=== PATIENT | male | born 1935 | race Caucasian/White ===

== ENCOUNTER 2019-05-17 07:35 | Day surgery (SDC) | payer MEDICARE, BC ==
[2019-05-17] MEDS: Polymyxin B/Trimethoprim 10 ML Bottle EYERT SCH ×4 (08:08→09:16)
--- NOTE | 2019-05-17 08:11 | PCM.PREANE ---
Preanesthetic Assessment - Anesthesia/Transfusion/Family Hx Anesthesia History: Prior Anesthesia Without Reaction Family History of Anesthesia Reaction: No - Review of Systems General: No Symptoms Pulmonary: Cough (Occasional. Smoker >1 ppday, COPD, Advair used this morning. ) Cardiovascular: No Symptoms (History of cardiac stents x 3 10 years ago. ) Gastrointestinal: No Symptoms Neurological: No Symptoms Other: Reports: None - Physical Assessment NPO Status Date: 05/16/19 NPO Status Time: 18:00 Vital Signs: Last Vital Signs Temp 36.5 C 05/17/19 07:40 Pulse 66 05/17/19 07:40 Resp 20 05/17/19 07:40 BP 148/65 H 05/17/19 07:40 Pulse Ox 95 05/17/19 07:40 Height: 1.93 m Weight: 81.647 kg ASA Class: 3 Mental Status: Alert & Oriented x3 Airway Class: Mallampati = 2 Dentition: Reports: Dentures (Upper plate) Thyro-Mental Finger Breadths: 3 Mouth Opening Finger Breadths: 3 ROM/Head Extension: Full Lungs: Clear to Auscultation, Normal Respiratory Effort, Decreased Breath Sounds Cardiovascular: Regular Rate, Regular Rhythm - Allergies Allergies/Adverse Reactions: Allergies Allergy/AdvReac Type Severity Reaction Status Date / Time No Known Allergies Allergy Verified 05/16/19 10:58 - Anesthesia Plan Beta Álvaro: Metoprolol Med Last Dose Date: 05/17/19 Med Last Dose Time: 06:00 - Acknowledgements Anesthesia Type Planned: MAC Pt an Appropriate Candidate for the Planned Anesthesia: Yes Alternatives and Risks of Anesthesia Discussed w Pt/Guardian: Yes Pt/Guardian Understands and Agrees with Anesthesia Plan: Yes PreAnesthesia Questionnaire - HOME MEDS Home Medications: Home Meds Aspirin [Halfprin] 81 mg PO DAILY 05/16/19 [History] Calcium Carbonate/Vitamin D3 [Calcium 500 + Vit D 400] 1 tab PO DAILY 05/16/19 [ History] Fluticasone/Salmeterol [Advair HFA 230-21 MCG] 2 puff INH BID 05/16/19 [History] Leuprolide Acetate [Eligard] 7.5 mg SQ ASDIRECTED 05/16/19 [History] Lisinopril 10 mg PO DAILY 05/16/19 [History] Metoprolol Succinate 50 mg PO DAILY 05/16/19 [History] Tamsulosin HCl [Flomax] 0.4 mg PO BEDTIME 05/16/19 [History] Umeclidinium [place] [Incruse Ellipta*] 62.5 mcg IH DAILY 05/16/19 [History] - CURRENT (IN HOUSE) MEDS Current Meds: Current Medications Brimonidine Tartrate (Alphagan 0.2% Ophth Soln) 0 ml EYERT ASDIRECTED LONNIE Stop: 05/17/19 18:00 Cefuroxime Sodium (Zinacef) 0 mg EYERT ASDIRECTED LONNIE Stop: 05/17/19 18:00 Lidocaine HCl (Xylocaine-Mpf 1%) 0 ml INJECT ASDIRECTED LONNIE Stop: 05/17/19 18:00 Phenylephrine HCl (Alfredo-Synephrine 2.5% Ophth Soln) 0 ml EYERT ASDIRECTED LONNIE Stop: 05/17/19 18:00 Pilocarpine HCl (Pilocar 4% Ophth Soln) 0 ml EYERT ASDIRECTED LONNIE Stop: 05/17/19 18:00 Polymyxin/Trimethoprim Sulfate (Polytrim Ophth Soln) 0 ml EYERT ASDIRECTED LONNIE Stop: 05/17/19 18:00 Tetracaine HCl (Tetracaine 0.5% Steri-Unit Leonie) 0 ml EYERT ASDIRECTED LONNIE Stop: 05/17/19 18:00 Tropicamide (Mydriacyl 1% Ophth Soln) 0 ml EYERT ASDIRECTED LONNIE Stop: 05/17/19 18:00
[2019-05-17] MEDS: Brimonidine 0.2% Ophth Soln 5 ML Bottle EYERT SCH ×4 (08:14→09:16)
[2019-05-17] MEDS: Phenylephrine 2.5% Ophth Soln 2 ML Bot EYERT SCH ×6 (08:18→08:58)
[2019-05-17] MEDS: Tropicamide 1% Ophth Soln 15 ML Bottle EYERT SCH ×4 (08:22→08:48)
[2019-05-17] MEDS: Tetracaine HCl/PF 0.5% 4 ML Bottle EYERT SCH ×3 (08:51→09:03)
[2019-05-17] MEDS: Lidocaine 1% PF 2 ML SDV INJECT SCH ×2 (08:52→09:02)
[2019-05-17] MEDS: Cefuroxime 10 MG/ML SYRINGE EYERT SCH ×2 (08:53→09:15)
[2019-05-17] MEDS: Pilocarpine 4% Ophth Soln 15 ML Bot EYERT SCH ×2 (09:04→09:16)
--- NOTE | 2019-05-17 09:18 | PCM48HPAN ---
Post Anesthesia Note - EVALUATION WITHIN 48HRS OF ANESTHETIC Vital Signs in Normal Range: Yes Patient Participated in Evaluation: Yes Respiratory Function Stable: Yes Airway Patent: Yes Cardiovascular Function Stable: Yes Hydration Status Stable: Yes Pain Control Satisfactory: Yes Nausea and Vomiting Control Satisfactory: Yes Mental Status Recovered: Yes Vital Signs: Last Vital Signs Temp 36.5 C 05/17/19 07:40 Pulse 66 05/17/19 07:40 Resp 20 05/17/19 07:40 BP 148/65 H 05/17/19 07:40 Pulse Ox 95 05/17/19 07:40
== END 2019-05-17 09:29 | disposition home or self-care (01) ==
LOC: JD.SDS 07:35
PROVIDERS: ATTEND Ophthalmology
DX: H25.811 Combined forms of age-related cataract, right eye (principal); H02.834 Dermatochalasis of left upper eyelid; H02.831 Dermatochalasis of right upper eyelid; H52.31 Anisometropia; I10 Essential (primary) hypertension; F17.210 Nicotine dependence, cigarettes, uncomplicated; Z96.1 Presence of intraocular lens; Z79.82 Long term (current) use of aspirin; Z79.899 Other long term (current) drug therapy
CPT/HCPCS: 66984; J0697; J2001; V2632

== ENCOUNTER 2020-03-07 10:59 | Emergency (ER) | payer MEDICARE, BC ==
--- NOTE | 2020-03-07 11:24 | EDM.PDOC ---
ED HPI GENERAL MEDICAL PROBLEM - General Chief Complaint: Gastrointestinal Problem Stated Complaint: CONSTIPATION Time Seen by Provider: 03/07/20 11:19 Source of Information: Reports: Patient History Limitations: Reports: No Limitations - History of Present Illness INITIAL COMMENTS - FREE TEXT/NARRATIVE: 84-year-old male presents to the ED for evaluation of no bowel movement for the last 4 days. He states bowels were working good while he was taking MiraLAX and in fact they were working too good and he developed some diarrhea and he has discontinued the MiraLAX. He has lost his appetite due to the constipation. He estimates a 10 to 15 pound weight loss in the last 3 months. He does look much more cachectic in appearance than he did when I have last seen him. Patient has a past history of prostate cancer treated with cesium seed implants about 17 years ago with no evidence of recurrence. Patient has had multiple malignant polyps removed from his colon with colon resections and a transient colostomy which has been subsequently closed. He also had hard beam radiation x27 treatments to his prostate gland as part of the treatment plan and did have radiation induced diarrhea for period of time. Or he could well have a rectal stenosis. Denies any blood per rectum. Pressure in the rectal vault but really is having no pain. No nausea or vomiting. No fever or chills. Still smoking a pack per day has known COPD not on oxygen at home. O2 sats here were 89 to 90% and list reveals that he is on a tremendous amount of calcium supplementation which apparently he is taking because of osteoporosis osteopenia secondary to antiandrogenic agents being used to treat his prostate cancer. The high-dose calcium is most likely causing his constipation. Onset: Gradual Onset Date: 03/03/20 Duration: Day(s): Location: Reports: Abdomen (Constipation with no bowel movement x4 days. Denies any associate abdominal cramping pain.) Quality: Reports: Other Severity: Moderate (None.) Improves with: Reports: None Worsens with: Reports: None Context: Denies: Activity, Exercise, Lifting, Sick Contact, Trauma, Other Associated Symptoms: Reports: Shortness of Breath (Me on minimal exertion.), Other Treatments ENVELOPE MAKER: Reports: Other (see below) ( Patient has known COPD. He is not on oxygen at home.) - Related Data Allergies Allergy/AdvReac Type Severity Reaction Status Date / Time No Known Allergies Allergy Verified 03/07/20 11:10 Home Meds: Home Meds Aspirin [Halfprin] 81 mg PO DAILY 05/16/19 [History] Fluticasone/Salmeterol [Advair HFA 230-21 MCG] 2 puff INH BID 05/16/19 [History] Lisinopril 10 mg PO DAILY 05/16/19 [History] Metoprolol Succinate 50 mg PO DAILY 05/16/19 [History] Tamsulosin HCl [Flomax] 0.4 mg PO BEDTIME 05/16/19 [History] Calcium Carbonate [Calcium] 1,250 mg PO DAILY 03/07/20 [History] Denosumab [Prolia] 60 mg SQ ASDIRECTED 03/07/20 [History] Leuprolide [Leuprolide Depot 6-Month] 45 mg SQ ASDIRECTED 03/07/20 [History] amLODIPine/atorvaSTATin [Caduet 10 MG-10 MG] 1 tab PO DAILY 03/07/20 [History] atorvaSTATin [Lipitor] 1 tab PO DAILY 03/07/20 [History] Past Medical History Cardiovascular History: Reports: High Cholesterol, Hypertension Respiratory History: Reports: COPD (Not on oxygen. Still smoking a pack per day.) Musculoskeletal History: Reports: Osteoarthritis, Osteoporosis Oncologic (Cancer) History: Reports: Colon (She has had multiple colon surgeries for colon cancer including a transient diverting colostomy which was reversed.), Prostate (Diagnosed with prostate cancer 17 years ago. Treated with cesium seed implants and hard beam radiation x17 treatments. Patient is currently on antiandrogenic agents because of an elevated PSA. This in turn is causing this bone loss and this is the reason he is on high-dose calcium.) Social & Family History - Tobacco Use Smoking Status *Q: Current Every Day Smoker Years of Tobacco use: 65 Packs/Tins Daily: 1 - Caffeine Use Caffeine Use: Reports: Coffee - Recreational Drug Use Recreational Drug Use: No - Living Situation & Occupation Living situation: Reports: Occupation: Retired ED ROS GENERAL - Review of Systems Review Of Systems: See Below Constitutional: Reports: Decreased Appetite HEENT: Reports: No Symptoms Respiratory: Reports: Shortness of Breath. Denies: Wheezing, Pleuritic Chest Pain, Cough, Sputum, Hemoptysis, Other Cardiovascular: Reports: No Symptoms Endocrine: Reports: Fatigue GI/Abdominal: Reports: Constipation (No bowel movement for last 4 days. No oozing per rectum. Does feel rectal pressure discomfort.) : Reports: Frequency, Other (BPH. He has prostate cancer treated with cesium seed implants and hard beam radiation treatments.) Musculoskeletal: Reports: Back Pain, Joint Pain Skin: Reports: No Symptoms (Sepsis lumbar spine neck and shoulders at times.) Neurological: Reports: No Symptoms Psychiatric: Reports: No Symptoms Hematologic/Lymphatic: Reports: No Symptoms Immunologic: Reports: No Symptoms ED EXAM, GI/ABD - Physical Exam Exam: See Below Exam Limited By: No Limitations General Appearance: Alert, WD/WN, Anxious, Mild Distress, Thin (Thin. He is lost 10 to 15 pounds of weight in the last 3 months.) Eyes: Bilateral: Normal Appearance (No blepharal pallor or scleral icterus.) Respiratory/Chest: No Respiratory Distress, Decreased Breath Sounds (Decreased air entry lower 50% lung welch bilaterally.), Wheezing ( Very occasional expiratory wheeze.). No: Crackles, Rales, Rhonchi Cardiovascular: Normal Peripheral Pulses, Regular Rate, Rhythm, No Edema, No Gallop, No Murmur, No Rub GI/Abdominal Exam: Normal Bowel Sounds, Soft, Non-Tender, No Organomegaly, No Mass, Pelvis Stable, Other (Patient has multiple surgical scars on his abdomen from previous colon surgeries and transient colostomy. Hernias appreciated.) Back Exam: Other (Kyphosis thoracic spine.) Extremities: Normal Inspection, Normal Range of Motion, Non-Tender, No Pedal Edema Neurological: Alert, Oriented, CN II-XII Intact, Normal Cognition, Normal Gait Psychiatric: Anxious Skin Exam: Warm (Mildly anxious.), Dry, Intact, Normal Color, No Rash Course - Vital Signs Last Recorded V/S: Last Vital Signs Temp 35.8 C L 03/07/20 11:05 Pulse 73 03/07/20 11:05 Resp 16 03/07/20 11:05 BP 185/86 H 03/07/20 11:05 Pulse Ox - Orders/Labs/Meds Orders: Active Orders 24 hr Category Date Time Status Enema [RC] ASDIRECTED Care 03/07/20 11:43 Active Meds: Medications Discontinued Medications Generic Name Dose Route Start Last Admin Trade Name Freq PRN Reason Stop Dose Admin Lidocaine HCl 10 ml 03/07/20 11:43 03/07/20 11:53 Xylocaine 2% Jelly MUCMEM 03/07/20 11:44 10 ml ONETIME ONE Administration - Radiology Interpretation Free Text/Narrative:: 84-year-old male presents to the ED for evaluation of constipation. Patient reports no good bowel mom for the last 4 days. He was having fairly good bowel movements and in fact to get a bowel movements I developed diarrhea while on MiraLAX powder. He discontinued it completely. Patient is on high doses of calcium carbonate due to very thin bones i.e. osteopenia osteoporosis secondary to antiandrogenic agents he is using for his prostate cancer. Patient has had previous high beam radiation to his prostate in thousand and 3 with cesium seed implants. He did have some transient radiation-induced diarrhea after this but no once commented whether or not he has any stenosis of the rectum. He has been battling problems with constipation off and on. At present he has no nausea vomiting abdominal pain or cramping. He is quite cachectic in appearance likely due to his COPD as he is working hard to breathe. Still smokes a pack per day. Plan KUB to be done. - Re-Assessments/Exams Free Text/Narrative Re-Assessment/Exam: 03/07/20 11:42 KUB reveals increased stool primarily in the rectal vault. There is increased air throughout the remainder of the colon and small portions of the small bowel. No signs of bowel obstruction exist. He has marked degenerative changes throughout his lower thoracic and lumbar spine. Of a gallstone measuring 1.5 cm in the right lower abdomen over the iliac crest. 03/07/20 11:46 plan discussed the options with the patient plan will be to proceed with a soapsuds enema after numbing his anus with lidocaine muco-gel. Plan will be to place him back on MiraLAX powder half a scoop or 10 g daily to try and keep bowels regular without developing diarrhea. 03/07/20 12:51 and had good results with the soapsuds enema. He is feeling much improved. He will be discharged to home. Departure - Departure Time of Disposition: 12:51 Disposition: Home, Self-Care 01 Condition: Fair Clinical Impression: Constipation by delayed colonic transit - Discharge Information *PRESCRIPTION DRUG MONITORING PROGRAM REVIEWED*: Not Applicable *COPY OF PRESCRIPTION DRUG MONITORING REPORT IN PATIENT MAHAD: Not Applicable Instructions: Chronic Constipation Referrals: Oscar Bishop Jr, MD [Primary Care Provider] - Forms: ED Department Discharge Additional Instructions: Evaluation in the emergency room today in regards to rectal constipation identified on x-ray of the abdomen. As you identified you have not had a decent bowel movement for days. Constipation is being caused by the high doses of calcium you are taking in an effort to maintain bone health while you are on antiandrogenic agents for your prostate cancer. You were treated with a soapsuds enema to provide relief of the constipation. Suggest returning to MiraLAX powder--one half scoop every day to try and prevent constipation from reoccurring. Otherwise constipation will be a chronic problem for you because of the medications you are taking. Sepsis Event Note (ED) - Evaluation Sepsis Screening Result: No Definite Risk - Focused Exam Vital Signs: Vital Signs Temp Pulse Resp BP 03/07/20 11:05 35.8 C L 73 16 185/86 H - My Orders Last 24 Hours: My Active Orders 03/07/20 11:43 Enema [RC] ASDIRECTED - Assessment/Plan Last 24 Hours: My Active Orders 03/07/20 11:43 Enema [RC] ASDIRECTED
[2020-03-07] MEDS ORDERED: Lidocaine 2% Jelly 10 ML Urojet MUCMEM ONE (11:43)
--- NOTE | 2020-03-07 11:57 | CR ---
Abdomen: Supine view of the abdomen was obtained. Calcification is seen overlying the right iliac wing possibly due to calcification within the gallbladder. Phleboliths are seen within the pelvis. Radiation implant seeds are noted within the prostate gland. Scoliosis is present within the spine. Vascular calcification is noted. Bowel gas pattern appears normal. Impression: 1. Findings as described above. 2. Nothing acute is seen. Diagnostic code #2 This report was dictated in MDT
== END 2020-03-07 13:08 | disposition home or self-care (01) ==
LOC: JD.ED 10:59
DX: K59.01 Slow transit constipation (principal); I10 Essential (primary) hypertension; E78.00 Pure hypercholesterolemia, unspecified; J44.9 Chronic obstructive pulmonary disease, unspecified; F17.210 Nicotine dependence, cigarettes, uncomplicated; Z79.82 Long term (current) use of aspirin; Z79.899 Other long term (current) drug therapy
CPT/HCPCS: 74018; 74018-26; 99282; 99283

== ENCOUNTER 2020-07-04 17:32 | Emergency (ER) | payer MEDICARE, BC ==
[2020-07-04] MEDS ORDERED: Sodium Chloride 0.9% 10 ML Syringe FLUSH PRN (18:07)
[2020-07-04] MEDS ORDERED: Sodium Chloride 0.9% 1,000 ML IV SCH (18:15)
--- NOTE | 2020-07-04 19:24 | EDM.PDOC ---
ED HPI GENERAL MEDICAL PROBLEM - General Chief Complaint: Neurological Problem Stated Complaint: DIZZY/FEELS LIKE HE COULD THROW UP Time Seen by Provider: 07/04/20 18:04 Source of Information: Reports: Patient, RN Notes Reviewed - History of Present Illness INITIAL COMMENTS - FREE TEXT/NARRATIVE: Had a dizzy spell at home about an hour ago. Was sitting at the kitchen table when he started feeling lightheaded. He than walked to a couch or bed and laid down for about a half hour. He felt more dizzy and lightheaded walking but than better when he laid down. No chest pain, slight nausea, no vomiting. No abd or other discomfort. He had a similar "spell 4 to 5 days prior", no quite as severe. On meds for Htn. - Related Data Allergies Allergy/AdvReac Type Severity Reaction Status Date / Time No Known Allergies Allergy Verified 07/04/20 18:01 Home Meds: Home Meds Aspirin [Halfprin] 81 mg PO DAILY 05/16/19 [History] Fluticasone/Salmeterol [Advair HFA 230-21 MCG] 2 puff INH BID 05/16/19 [History] Lisinopril 10 mg PO DAILY 05/16/19 [History] Metoprolol Succinate 50 mg PO DAILY 05/16/19 [History] Tamsulosin HCl [Flomax] 0.4 mg PO BEDTIME 05/16/19 [History] Denosumab [Prolia] 60 mg SQ ASDIRECTED 03/07/20 [History] Leuprolide [Leuprolide Depot 6-Month] 45 mg SQ ASDIRECTED 03/07/20 [History] atorvaSTATin [Lipitor] 1 tab PO DAILY 03/07/20 [History] Past Medical History HEENT History: Reports: Impaired Vision Cardiovascular History: Reports: High Cholesterol, Hypertension Respiratory History: Reports: COPD Musculoskeletal History: Reports: Osteoarthritis, Osteoporosis Neurological History: Reports: None Psychiatric History: Reports: None Endocrine/Metabolic History: Reports: None Hematologic History: Reports: None Immunologic History: Reports: None Oncologic (Cancer) History: Reports: Colon, Prostate Dermatologic History: Reports: None - Infectious Disease History Infectious Disease History: Reports: None - Past Surgical History GI Surgical History: Reports: Hernia Repair/Other, Other (See Below) Other GI Surgeries/Procedures: Polyps removed, part of bowel removed, previous colostomy bag. Male Surgical History: Reports: Other (See Below) Other Male Surgeries/Procedures: Prostate surgery with radiation seeds. Social & Family History - Tobacco Use Tobacco Use Status *Q: Current Every Day Tobacco User Years of Tobacco use: 50 Packs/Tins Daily: 1 - Caffeine Use Caffeine Use: Reports: Coffee - Living Situation & Occupation Living situation: Reports: Occupation: Retired ED ROS GENERAL - Review of Systems Review Of Systems: See Below Constitutional: Denies: Fever, Chills, Diaphoresis HEENT: Reports: No Symptoms Respiratory: Denies: Shortness of Breath, Pleuritic Chest Pain, Cough Cardiovascular: Denies: Chest Pain GI/Abdominal: Reports: Nausea. Denies: Abdominal Pain, Diarrhea, Vomiting Musculoskeletal: Denies: Neck Pain, Shoulder Pain, Back Pain Skin: Reports: No Symptoms Neurological: Reports: Dizziness. Denies: Numbness, Tingling, Trouble Speaking, Difficulty Walking ED EXAM, DIZZINESS - Physical Exam Exam: See Below General Appearance: Alert, No Apparent Distress Eye Exam: Bilateral Eye: PERRL Throat/Mouth: Normal Inspection Head Exam: Atraumatic. No: Facial Swelling Neck: Normal Inspection, Supple Respiratory/Chest: No Respiratory Distress, Lungs Clear, Normal Breath Sounds. No: Rales, Rhonchi, Wheezing Cardiovascular: Regular Rate, Rhythm GI/Abdominal: Soft, Non-Tender Neurological: Alert, Normal Mood/Affect, No Motor/Sensory Deficits, Oriented x 3 Extremities: Normal Inspection, Normal Range of Motion Skin Exam: Warm, Dry, Normal Color #1 Interpretation EKG Date: 07/04/20 Rhythm: NSR Vill[place]: Normal P-Wave: Present QRS: Other (q waves ant. leads) ST-T: Elevated (mild st elevation inf. leads and also V3.) Course - Vital Signs Last Recorded V/S: Last Vital Signs Temp 98.2 F 07/04/20 17:56 Pulse 91 07/04/20 17:56 Resp 16 07/04/20 17:56 BP 186/78 H 07/04/20 17:56 Pulse Ox 92 L 07/04/20 17:56 - Orders/Labs/Meds Labs: Laboratory Tests 07/04/20 07/04/20 Range/Units 18:30 18:30 WBC 6.13 (4.23-9.07) K/mm3 RBC 4.53 L (4.63-6.08) M/mm3 Hgb 13.0 L (13.7-17.5) gm/dl Hct 42.4 (40.1-51.0) % MCV 93.6 H (79.0-92.2) fl MCH 28.7 (25.7-32.2) pg MCHC 30.7 L (32.2-35.5) g/dl RDW Std Deviation 49.0 H (35.1-43.9) fL Plt Count 252 (163-337) K/mm3 MPV 9.9 (9.4-12.3) fl Neut % (Auto) 71.6 H (34.0-67.9) % Lymph % (Auto) 10.8 L (21.8-53.1) % Becker % (Auto) 9.3 (5.3-12.2) % Eos % (Auto) 7.8 H (0.8-7.0) Baso % (Auto) 0.3 (0.1-1.2) % Neut # (Auto) 4.39 (1.78-5.38) K/mm3 Lymph # (Auto) 0.66 L (1.32-3.57) K/mm3 Becker # (Auto) 0.57 (0.30-0.82) K/mm3 Eos # (Auto) 0.48 (0.04-0.54) K/mm3 Baso # (Auto) 0.02 (0.01-0.08) K/mm3 Sodium 138 (136-145) mEq/L Potassium 4.7 (3.5-5.1) mEq/L Chloride 102 (98-107) mEq/L Carbon Dioxide 30 (21-32) mEq/L Anion Gap 10.7 (5-15) BUN 19 H (7-18) mg/dL Creatinine 1.1 (0.7-1.3) mg/dL Est Cr Clr Drug Dosing 49.83 mL/min Estimated GFR (MDRD) > 60 (>60) mL/min BUN/Creatinine Ratio 17.3 (14-18) Glucose 96 (83-115) mg/dL Calcium 8.4 L (8.5-10.1) mg/dL Total Bilirubin 1.0 (0.2-1.0) mg/dL AST 21 (15-37) U/L ALT 26 (16-63) U/L Alkaline Phosphatase 61 (46-116) U/L Troponin I < 0.017 (0.00-0.056) ng/mL Total Protein 7.0 (6.4-8.2) g/dl Albumin 3.5 (3.4-5.0) g/dl Globulin 3.5 gm/dL Albumin/Globulin Ratio 1.0 (1-2) Meds: Medications Discontinued Medications Generic Name Dose Route Start Last Admin Trade Name Freq PRN Reason Stop Dose Admin Sodium Chloride 1,000 mls @ 150 mls/hr 07/04/20 18:15 07/04/20 18:34 Normal Saline IV 150 mls/hr ASDIRECTED LONNIE Administration Sodium Chloride 10 ml 07/04/20 18:07 07/04/20 18:34 Saline Flush FLUSH 10 ml ASDIRECTED PRN Administration Keep Vein Open - Re-Assessments/Exams Free Text/Narrative Re-Assessment/Exam: 07/06/20 11:25 Labs normal including nl trop. He has been resting comfortable. BP has been running in the 150 to 160 range. Discharge instr. as documented. Departure - Departure Time of Disposition: 19:21 Disposition: Home, Self-Care 01 Condition: Fair Clinical Impression: Near syncope - Discharge Information Instructions: Near-Syncope, [id number] Referrals: Oscar Bishop Jr, MD [Primary Care Provider] - Forms: ED Department Discharge Additional Instructions: Get a blood pressure cuff and try check your blood pressure once or twice daily. Keep a record of those readings. It is safe for you to go to [place] tomorrow. See your regular medical provider in [place] in about 1 week. Call for appointment. Bring your blood pressure readings with you for that appointment. If you have further dizzy spells get your head down or lie down so you don't pass out. Return to ED if symptoms worsening in any way. Sepsis Event Note (ED) - Evaluation Sepsis Screening Result: No Definite Risk
== END 2020-07-04 19:37 | disposition home or self-care (01) ==
LOC: JD.ED 17:32
DX: R55 Syncope and collapse (principal); I10 Essential (primary) hypertension; E78.00 Pure hypercholesterolemia, unspecified; J44.9 Chronic obstructive pulmonary disease, unspecified; F17.210 Nicotine dependence, cigarettes, uncomplicated; Z79.82 Long term (current) use of aspirin; Z79.899 Other long term (current) drug therapy
CPT/HCPCS: 36415; 80053; 84484; 85025; 93005; 99284; J7030; 93010; 99283

== ENCOUNTER 2020-11-26 11:12 | Emergency (ER) | payer MEDICARE, OTHER ==
[2020-11-26] MEDS ORDERED: Sodium Chloride 0.9% 10 ML Syringe FLUSH PRN (11:13)
[2020-11-26] MEDS ORDERED: Furosemide 40 MG/4 ML VIAL IVPUSH ONE (11:14)
[2020-11-26] MEDS ORDERED: DOPamine/Dextrose 5%-Water 400 MG/250 ML BAG IV SCH (11:45)
--- NOTE | 2020-11-26 11:57 | CR ---
Chest: Portable view of the chest was obtained. Comparison: Prior chest x-ray at 05/21/13. Increased density within the right lung base is seen most likely representing pleural effusion. Heart is enlarged which is more prominent than on prior exam. Upper lungs are clear. Bony structures are grossly intact. Impression: 1. Right-sided pleural effusion. Increasing cardiomegaly from prior exam. 2. Nothing acute is otherwise seen. Diagnostic code #3
[2020-11-26] MEDS ORDERED: Furosemide 100 MG in Sodium Chloride 0.9% 90 ML IV ONE (13:30)
[2020-11-26] MEDS ORDERED: Furosemide 100 MG in Sodium Chloride 0.9% 90 ML IV SCH (13:30)
--- NOTE | 2020-11-26 13:37 | EDM.PDOC ---
ED HPI GENERAL MEDICAL PROBLEM - General Chief Complaint: Respiratory Problem Stated Complaint: [facility] Time Seen by Provider: 11/26/20 11:13 Source of Information: Reports: Patient, EMS, Provider History Limitations: Reports: No Limitations - History of Present Illness INITIAL COMMENTS - FREE TEXT/NARRATIVE: The patient presents by [facility] from Dr Graves's office at [facility] for shortness of breath and low blood pressure. He has a history of atrial fibrillation and CHF. He was supposed to be on cardizem 120mg daily but it appears he was taking that 4 times per day. He also was to take lasix 40mg 2 times per day. He has gained 18 pounds in the past week and he is short of breath. He went to see Dr Graves and his oxygen saturations were low and his blood pressure was low. His oxygen saturations were better when he got here but his blood pressure was [address] Graves talked with Dr Miranda the core assembly supervisor physics and astronomy professor at [facility] in [place] and he wanted him to go to the ER and transfer him to [facility]. He denies any fever, chills, cough, congestion, chest pain, abdominal pain, nausea and vomiting. Onset: Gradual Duration: Day(s): Severity: Moderate Improves with: Reports: None Worsens with: Reports: None Associated Symptoms: Reports: Shortness of Breath. Denies: Cough, Fever/Chills, Headaches, Nausea/Vomiting - Related Data Allergies Allergy/AdvReac Type Severity Reaction Status Date / Time No Known Allergies Allergy Verified 11/26/20 11:26 Home Meds: Home Meds Aspirin [Halfprin] 81 mg PO DAILY 05/16/19 [History] Lisinopril 5 mg PO DAILY 05/16/19 [History] Metoprolol Succinate 50 mg PO DAILY 05/16/19 [History] Tamsulosin HCl [Flomax] 0.4 mg PO BEDTIME 05/16/19 [History] Denosumab [Prolia] 60 mg SQ ASDIRECTED 03/07/20 [History] atorvaSTATin [Lipitor] 10 mg PO DAILY 03/07/20 [History] Albuterol Sulfate [Proventil Hfa] 2 puff INH TID 11/26/20 [History] Apixaban [Eliquis] 5 mg PO BID 11/26/20 [History] Fluticasone/Salmeterol [Advair HFA 230-21 MCG] 2 puff INH BID 11/26/20 [History] Furosemide [Lasix] 40 mg PO BID 11/26/20 [History] Leuprolide Acetate [Eligard] 7.5 mg SQ ASDIRECTED 11/26/20 [History] Potassium Chloride 10 meq PO DAILY 11/26/20 [History] dilTIAZem HCL [Cardizem] 120 mg PO QID 11/26/20 [History] guaiFENesin [Mucinex] 1,200 mg PO BID 11/26/20 [History] Past Medical History HEENT History: Reports: Impaired Vision Cardiovascular History: Reports: Afib, CAD, High Cholesterol, Hypertension, Other (See Below) Other Cardiovascular History: valvular heart dx Respiratory History: Reports: Bronchitis, Recurrent, COPD Gastrointestinal History: Reports: Other (See Below) Other Gastrointestinal History: 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 Genitourinary History: Reports: Prostate Disorder, Other (See Below) Other Genitourinary History: excessive urination at night; slowing of urinary stream Musculoskeletal History: Reports: Osteoarthritis, Osteoporosis Neurological History: Reports: None Psychiatric History: Reports: None Endocrine/Metabolic History: Reports: Other (See Below) Other Endocrine/Metabolic History: dyslipidemia Hematologic History: Reports: None Immunologic History: Reports: None Oncologic (Cancer) History: Reports: Colon, Prostate Dermatologic History: Reports: None - Infectious Disease History Infectious Disease History: Reports: None - Past Surgical History Cardiovascular Surgical History: Reports: Coronary Artery Stent GI Surgical History: Reports: Hernia Repair/Other, Other (See Below) Other GI Surgeries/Procedures: Polyps removed, part of bowel removed, previous colostomy bag. Male Surgical History: Reports: Other (See Below) Other Male Surgeries/Procedures: Prostate surgery with radiation seeds. Social & Family History - Tobacco Use Tobacco Use Status *Q: Current Every Day Tobacco User Years of Tobacco use: 46 Packs/Tins Daily: 1 - Caffeine Use Caffeine Use: Reports: Coffee - Living Situation & Occupation Living situation: Reports: Occupation: Retired ED ROS GENERAL - Review of Systems Review Of Systems: See Below Constitutional: Reports: No Symptoms HEENT: Reports: No Symptoms Respiratory: Reports: Shortness of Breath. Denies: Cough Cardiovascular: Reports: No Symptoms Endocrine: Reports: No Symptoms GI/Abdominal: Reports: No Symptoms : Reports: No Symptoms ED EXAM, GENERAL - Physical Exam Exam: See Below Exam Limited By: No Limitations General Appearance: Alert, No Apparent Distress Ears: Normal External Exam Nose: Normal Inspection Head: Atraumatic, Normocephalic Neck: Normal Inspection Respiratory/Chest: No Respiratory Distress, Decreased Breath Sounds, Rales Cardiovascular: No Edema, No Murmur, Bradycardia, Irregularly Irregular GI/Abdominal: Soft, Non-Tender, No Organomegaly, No Mass Back Exam: Normal Inspection Extremities: Pedal Edema #1 Interpretation EKG Date: 11/26/20 Time: 11:18 Rhythm: A-Fib Rate (Beats/Min): 54 [place]: Normal P-Wave: Absent QRS: Normal ST-T: Normal QT: Normal Course - Vital Signs Last Recorded V/S: Last Vital Signs Temp 97.4 F 11/26/20 11:17 Pulse 57 L 11/26/20 11:17 Resp 20 11/26/20 12:59 BP 115/68 11/26/20 12:59 Pulse Ox 95 11/26/20 12:59 - Orders/Labs/Meds Orders: Active Orders 24 hr Category Date Time Status Cardiac Monitoring [RC] . DIRECTED Care 11/26/20 11:14 Active EKG Documentation Completion [RC] STAT Care 11/26/20 11:14 Active Oxygen Therapy [RC] PRN Care 11/26/20 11:14 Active Peripheral IV Care [RC] . DIRECTED Care 11/26/20 11:14 Active DOPamine/Dextrose 5%-Water [DOPamine in D5W 400 MG/250 Med 11/26/20 11:45 Active ML] 400 mg in 250 ml IV TITRATE Furosemide [Lasix] 100 mg Med 11/26/20 13:30 Active Sodium Chloride 0.9% [Normal Saline] 90 ml IV ONETIME Sodium Chloride 0.9% [Saline Flush] Med 11/26/20 11:13 Active 10 ml FLUSH ASDIRECTED PRN Peripheral IV Insertion Adult [OM.PC] Stat Oth 11/26/20 11:13 Ordered Medication Orders Dopamine HCl/Dextrose (Dopamine In D5w 400 Mg/250 Ml) 400 mg in 250 mls @ 13.608 mls/hr IV TITRATE LONNIE; Protocol Last Admin: 11/26/20 11:47 Dose: 5 mcg/kg/min, 13.608 mls/hr Documented by: LUIS ALBERTO Furosemide 100 mg/ Sodium (Chloride) 100 mls @ 10 mls/hr IV ONETIME ONE; Protocol Stop: 11/26/20 23:29 Sodium Chloride (Sodium Chloride 0.9% 10 Ml Syringe) 10 ml FLUSH ASDIRECTED PRN PRN Reason: Keep Vein Open Last Admin: 11/26/20 11:48 Dose: 10 ml Documented by: LUIS ALBERTO Labs: Laboratory Tests 11/26/20 11/26/20 11/26/20 Range/Units 11:35 11:35 11:35 WBC 8.32 (4.23-9.07) K/mm3 RBC 4.56 L (4.63-6.08) M/mm3 Hgb 12.5 L (13.7-17.5) gm/dl Hct 40.7 (40.1-51.0) % MCV 89.3 D (79.0-92.2) fl MCH 27.4 (25.7-32.2) pg MCHC 30.7 L (32.2-35.5) g/dl RDW Std Deviation 51.9 H (35.1-43.9) fL Plt Count 300 (163-337) K/mm3 MPV 9.6 (9.4-12.3) fl Neut % (Auto) 84.2 H (34.0-67.9) % Lymph % (Auto) 6.9 L (21.8-53.1) % Maries % (Auto) 8.1 (5.3-12.2) % Eos % (Auto) 0.5 L (0.8-7.0) Baso % (Auto) 0.1 (0.1-1.2) % Neut # (Auto) 7.01 H (1.78-5.38) K/mm3 Lymph # (Auto) 0.57 L (1.32-3.57) K/mm3 Maries # (Auto) 0.67 (0.30-0.82) K/mm3 Eos # (Auto) 0.04 (0.04-0.54) K/mm3 Baso # (Auto) 0.01 (0.01-0.08) K/mm3 Manual Slide Review Abnormal smear Sodium 137 (136-145) mEq/L Potassium 4.4 (3.5-5.1) mEq/L Chloride 99 (98-107) mEq/L Carbon Dioxide 29 (21-32) mEq/L Anion Gap 13.4 (5-15) BUN 48 H D (7-18) mg/dL Creatinine 2.9 H D (0.7-1.3) mg/dL Est Cr Clr Drug Dosing 20.16 mL/min Estimated GFR (MDRD) 21 (>60) mL/min BUN/Creatinine Ratio 16.6 (14-18) Glucose 92 (83-115) mg/dL Calcium 8.6 (8.5-10.1) mg/dL Total Bilirubin 1.1 H (0.2-1.0) mg/dL AST 25 (15-37) U/L ALT 37 (16-63) U/L Alkaline Phosphatase 88 (46-116) U/L Troponin I 0.109 H* (0.00-0.056) ng/mL NT-Pro-B Natriuret Pep 3628 H (0-450) pg/mL Total Protein 6.2 L (6.4-8.2) g/dl Albumin 3.0 L (3.4-5.0) g/dl Globulin 3.2 gm/dL Albumin/Globulin Ratio 0.9 L (1-2) SARS-CoV-2 RNA (GRACE) (NEGATIVE) 11/26/20 Range/Units 12:01 WBC (4.23-9.07) K/mm3 RBC (4.63-6.08) M/mm3 Hgb (13.7-17.5) gm/dl Hct (40.1-51.0) % MCV (79.0-92.2) fl MCH (25.7-32.2) pg MCHC (32.2-35.5) g/dl RDW Std Deviation (35.1-43.9) fL Plt Count (163-337) K/mm3 MPV (9.4-12.3) fl Neut % (Auto) (34.0-67.9) % Lymph % (Auto) (21.8-53.1) % Maries % (Auto) (5.3-12.2) % Eos % (Auto) (0.8-7.0) Baso % (Auto) (0.1-1.2) % Neut # (Auto) (1.78-5.38) K/mm3 Lymph # (Auto) (1.32-3.57) K/mm3 Maries # (Auto) (0.30-0.82) K/mm3 Eos # (Auto) (0.04-0.54) K/mm3 Baso # (Auto) (0.01-0.08) K/mm3 Manual Slide Review Sodium (136-145) mEq/L Potassium (3.5-5.1) mEq/L Chloride (98-107) mEq/L Carbon Dioxide (21-32) mEq/L Anion Gap (5-15) BUN (7-18) mg/dL Creatinine (0.7-1.3) mg/dL Est Cr Clr Drug Dosing mL/min Estimated GFR (MDRD) (>60) mL/min BUN/Creatinine Ratio (14-18) Glucose (83-115) mg/dL Calcium (8.5-10.1) mg/dL Total Bilirubin (0.2-1.0) mg/dL AST (15-37) U/L ALT (16-63) U/L Alkaline Phosphatase (46-116) U/L Troponin I (0.00-0.056) ng/mL NT-Pro-B Natriuret Pep (0-450) pg/mL Total Protein (6.4-8.2) g/dl Albumin (3.4-5.0) g/dl Globulin gm/dL Albumin/Globulin Ratio (1-2) SARS-CoV-2 RNA (GRACE) Negative (NEGATIVE) Meds: Medications Generic Name Dose Route Start Last Admin Trade Name Freq PRN Reason Stop Dose Admin Dopamine HCl/Dextrose 400 mg in 250 mls @ 13.608 mls/hr 11/26/20 11:45 11/26/20 11:47 Dopamine In D5w 400 Mg/250 Ml IV 5 mcg/kg/min TITRATE LONNIE 13.608 mls/hr Administration Protocol 5 MCG/KG/MIN Furosemide 100 mg/ Sodium 100 mls @ 10 mls/hr 11/26/20 13:30 Chloride IV 11/26/20 23:29 ONETIME ONE Protocol Sodium Chloride 10 ml 11/26/20 11:13 11/26/20 11:48 Sodium Chloride 0.9% 10 Ml Syringe FLUSH 10 ml ASDIRECTED PRN Administration Keep Vein Open Discontinued Medications Generic Name Dose Route Start Last Admin Trade Name Shannan PRN Reason Stop Dose Admin Furosemide 80 mg 11/26/20 11:14 11/26/20 12:57 Furosemide 40 Mg/4 Ml Vial IVPUSH 11/26/20 11:15 Not Given NOW ONE Furosemide 100 mg/ Sodium 100 mls @ 10 mls/hr 11/26/20 13:30 Chloride IV TITRATE LONNIE Protocol 10 MG/HR - Re-Assessments/Exams Free Text/Narrative Re-Assessment/Exam: 11/26/20 13:52 I ordered an IV saline lock, oxygen, labs, EKG, and CXR. His EKG shows atrial fibrillation at a rate of 54. His CXR shows right sided pleural effusion. Increasing cardiomegaly from prior exam. Nothing acute is otherwise seen. His BP was low in the 70s systolic. His heart rate was also low in the 50s, 40s and at times in the 30s. I decided to start a dopamine drip at 5. That helped nicely with his heart rate and BP. He feels better after that. 11/26/20 13:56 His Hgb was a little low at 12.5. His creatinine was elevated at 2.9. When he was here in July was normal at 1.1. His troponin is elevated at 0.109. His BNP is elevated at 3628. He is COVID negative. I called [facility] in [place] and talked with Dr Espinoza the hospitalist and Dr Miranda the core assembly supervisor and Dr Espinoza accepted him. Dr Miranda wanted him on a lasix drip at 10mg/hr. I have ordered that. Departure - Departure Time of Disposition: 14:05 Disposition: DC/Tfer to Acute Hospital 02 Condition: Serious Clinical Impression: Elevated troponin, Renal insufficiency, Hypoxia Hypotension Qualifiers: Hypotension type: other hypotension type Qualified Code(s): I95.89 - Other hypotension CHF exacerbation Qualifiers: Heart failure type: diastolic Qualified Code(s): I50.33 - Acute on chronic diastolic (congestive) heart failure - Discharge Information Referrals: Teresa Graves MD [Primary Care Provider] - Forms: ED Department Discharge Sepsis Event Note (ED) - Evaluation Sepsis Screening Result: No Definite Risk - Focused Exam Vital Signs: Vital Signs Temp Pulse Resp BP Pulse Ox Pulse Ox 11/26/20 12:59 20 115/68 95 11/26/20 11:45 16 86/52 L 95 11/26/20 11:35 20 78/52 L 92 L 11/26/20 11:17 97.4 F 57 L 18 92/56 L 98 11/26/20 11:14 96 - My Orders Last 24 Hours: My Active Orders 11/26/20 11:13 Sodium Chloride 0.9% [Saline Flush] 10 ml FLUSH ASDIRECTED PRN Peripheral IV Insertion Adult [OM.PC] Stat 11/26/20 11:14 Cardiac Monitoring [RC] . DIRECTED EKG Documentation Completion [RC] STAT Oxygen Therapy [RC] PRN Peripheral IV Care [RC] . DIRECTED 11/26/20 11:45 DOPamine/Dextrose 5%-Water [DOPamine in D5W 400 MG/250 ML] 400 mg in 250 ml IV TITRATE 11/26/20 13:30 Furosemide [Lasix] 100 mg Sodium Chloride 0.9% [Normal Saline] 90 ml IV ONETIME - Assessment/Plan Last 24 Hours: My Active Orders 11/26/20 11:13 Sodium Chloride 0.9% [Saline Flush] 10 ml FLUSH ASDIRECTED PRN Peripheral IV Insertion Adult [OM.PC] Stat 11/26/20 11:14 Cardiac Monitoring [RC] . DIRECTED EKG Documentation Completion [RC] STAT Oxygen Therapy [RC] PRN Peripheral IV Care [RC] . DIRECTED 11/26/20 11:45 DOPamine/Dextrose 5%-Water [DOPamine in D5W 400 MG/250 ML] 400 mg in 250 ml IV TITRATE 11/26/20 13:30 Furosemide [Lasix] 100 mg Sodium Chloride 0.9% [Normal Saline] 90 ml IV ONETIME
== END 2020-11-26 14:40 ==
LOC: JD.ED 11:12
DX: I11.0 Hypertensive heart disease with heart failure (principal); I50.30 Unspecified diastolic (congestive) heart failure; I95.89 Other hypotension; R79.89 Other specified abnormal findings of blood chemistry; N28.9 Disorder of kidney and ureter, unspecified; R09.02 Hypoxemia; I48.91 Unspecified atrial fibrillation; I25.10 Atherosclerotic heart disease of native coronary artery without angina pectoris; E78.00 Pure hypercholesterolemia, unspecified; J44.9 Chronic obstructive pulmonary disease, unspecified; M19.90 Unspecified osteoarthritis, unspecified site; R74.8 Abnormal levels of other serum enzymes; Z72.0 Tobacco use; Z79.82 Long term (current) use of aspirin; Z79.01 Long term (current) use of anticoagulants; Z79.899 Other long term (current) drug therapy; Z20.822 Contact with and (suspected) exposure to COVID-19
CPT/HCPCS: 36415; 71045; 80053; 83880; 84484; 85025; 93005; 94762; 96365; 96366; 96368; 99285; J1265; U0002; 93010; 99284

== ENCOUNTER 2021-12-27 18:37 | Inpatient (IN) | payer MEDICARE, OTHER ==
[2021-12-27] MEDS ORDERED: Sodium Chloride 0.9% 10 ML Syringe FLUSH PRN (19:57)
[2021-12-27] MEDS ORDERED: Ondansetron 4 MG/2 ML SDV IVPUSH ONE (19:57)
[2021-12-27] MEDS ORDERED: Sodium Chloride 0.9% 1,000 ML IV SCH (20:00)
[2021-12-27] MEDS ORDERED: cefTRIAXone 2 GM in Sodium Chloride 0.9% 100 ML IV ONE (23:31)
[2021-12-27] MEDS ORDERED: HYDROmorphone 0.5 MG/0.5 ML Syringe IVPUSH ONE (23:41)
[2021-12-28] MEDS ORDERED: Morphine 2 MG/ML SYRINGE IVPUSH PRN (01:43)
[2021-12-28] MEDS ORDERED: Ondansetron 4 MG/2 ML SDV IVPUSH PRN (01:44)
[2021-12-28] MEDS: Sodium Chloride 0.9% 1,000 ML IV SCH ×3 (02:29→21:13)
[2021-12-28] MEDS ORDERED: Formoterol/Mometasone 200-5 MCG 8.8 GM Inhaler IH SCH (09:30)
[2021-12-28] MEDS: Potassium Chloride 10 MEQ Tab.ER PO SCH (10:06)
[2021-12-28] MEDS: Aspirin 81 MG Tab.EC PO SCH (10:06)
[2021-12-28] MEDS: Furosemide 40 MG Tab PO SCH ×2 (10:06→13:08)
[2021-12-28] MEDS: guaiFENesin 600 MG Tab.ER PO SCH ×2 (10:07→21:12)
[2021-12-28] MEDS: Lisinopril 10 MG Tab PO SCH (10:07)
[2021-12-28] MEDS: Metoprolol Succinate 50 MG Tab.ER PO SCH (10:07)
[2021-12-28] MEDS: Nicotine 14 MG/24 Hr Patch TRDERM SCH (10:12)
[2021-12-28] MEDS: cefTRIAXone 2 GM in Sodium Chloride 0.9% 100 ML IV SCH (10:15)
[2021-12-28] MEDS: Albuterol 6.7 GM Inhaler INH SCH ×3 (10:43→21:41)
[2021-12-28] MEDS: Formoterol/Mometasone 200-5 MCG 8.8 GM Inhaler IH SCH ×2 (10:43→21:41)
[2021-12-28] MEDS ORDERED: DILTIAZEM HCL 120 MG PO SCH (13:00)
[2021-12-28] MEDS: Digoxin 125 MCG Tab PO SCH (14:09)
[2021-12-28] MEDS ORDERED: Albuterol 6.7 GM Inhaler INH SCH (15:00)
[2021-12-28] MEDS ORDERED: Apixaban 5 MG Tab PO SCH (21:00)
[2021-12-28] MEDS: Apixaban 2.5 MG Tab PO SCH (21:12)
[2021-12-28] MEDS: Tamsulosin 0.4 MG Cap.ER PO SCH (21:12)
[2021-12-29] MEDS: Albuterol 6.7 GM Inhaler INH SCH ×3 (05:38→20:36)
[2021-12-29] MEDS: Formoterol/Mometasone 200-5 MCG 8.8 GM Inhaler IH SCH ×2 (05:38→20:36)
[2021-12-29] MEDS: Furosemide 40 MG Tab PO SCH ×2 (06:20→13:46)
[2021-12-29] MEDS: Sodium Chloride 0.9% 1,000 ML IV SCH ×2 (06:20→14:18)
[2021-12-29] MEDS: Apixaban 2.5 MG Tab PO SCH ×2 (09:57→20:45)
[2021-12-29] MEDS: Potassium Chloride 10 MEQ Tab.ER PO SCH (09:57)
[2021-12-29] MEDS: Aspirin 81 MG Tab.EC PO SCH (09:58)
[2021-12-29] MEDS: guaiFENesin 600 MG Tab.ER PO SCH ×2 (09:58→20:45)
[2021-12-29] MEDS: cefTRIAXone 2 GM in Sodium Chloride 0.9% 100 ML IV SCH (09:59)
[2021-12-29] MEDS: Nicotine 14 MG/24 Hr Patch TRDERM SCH (10:02)
[2021-12-29] MEDS ORDERED: Aluminum Hydroxide/Magnesium Hydroxide/Simethicone Susp 30 ML Cup PO ONE (11:00)
[2021-12-29] MEDS: Digoxin 125 MCG Tab PO SCH (11:03)
[2021-12-29] MEDS ORDERED: Mineral Oil 30 ML UD Cup PO ONE (11:15)
[2021-12-29] MEDS: Metoprolol Succinate 50 MG Tab.ER PO SCH (11:30)
[2021-12-29] MEDS: Lisinopril 10 MG Tab PO SCH (11:30)
[2021-12-29] MEDS ORDERED: Metoclopramide 10 MG/2 ML SDV IVPUSH ONE (15:00)
[2021-12-29] MEDS: Tamsulosin 0.4 MG Cap.ER PO SCH (20:45)
[2021-12-30] MEDS: Sodium Chloride 0.9% 1,000 ML IV SCH ×2 (00:04→09:36)
[2021-12-30] MEDS: Albuterol 6.7 GM Inhaler INH SCH ×2 (07:04→15:01)
[2021-12-30] MEDS: Formoterol/Mometasone 200-5 MCG 8.8 GM Inhaler IH SCH (07:04)
[2021-12-30] MEDS: Furosemide 40 MG Tab PO SCH ×2 (08:59→13:41)
[2021-12-30] MEDS: Apixaban 2.5 MG Tab PO SCH (09:00)
[2021-12-30] MEDS: Potassium Chloride 10 MEQ Tab.ER PO SCH (09:00)
[2021-12-30] MEDS: Aspirin 81 MG Tab.EC PO SCH (09:00)
[2021-12-30] MEDS: guaiFENesin 600 MG Tab.ER PO SCH (09:00)
[2021-12-30] MEDS: cefTRIAXone 2 GM in Sodium Chloride 0.9% 100 ML IV SCH (09:01)
[2021-12-30] MEDS: Nicotine 14 MG/24 Hr Patch TRDERM SCH (09:04)
[2021-12-30] MEDS: Lisinopril 10 MG Tab PO SCH (09:37)
[2021-12-30] MEDS: Metoprolol Succinate 50 MG Tab.ER PO SCH (09:38)
[2021-12-30] MEDS: Digoxin 125 MCG Tab PO SCH (11:42)
[2021-12-31] MEDS ORDERED: Lisinopril 5 MG Tab PO SCH (09:00)
== END 2021-12-30 18:00 | disposition home or self-care (01) | DRG 388 ==
LOC: SUPCPDRO 18:37 → JD.ED 18:37 → JD.MS 12-28 00:08
PROVIDERS: ADMIT Internal Medicine; ATTEND Internal Medicine
PROC: 0D9670Z Drainage of Stomach with Drainage Device, Via Natural or Artificial Opening (ICD-10-PCS; principal; 2021-12-28)
DX: K56.609 Unspecified intestinal obstruction, unspecified as to partial versus complete obstruction (principal); E43 Unspecified severe protein-calorie malnutrition; H54.7 Unspecified visual loss; R64 Cachexia; Z68.1 Body mass index [BMI] 19.9 or less, adult; N30.01 Acute cystitis with hematuria; I10 Essential (primary) hypertension; J44.9 Chronic obstructive pulmonary disease, unspecified; K50.00 Crohn's disease of small intestine without complications; K50.10 Crohn's disease of large intestine without complications; I48.91 Unspecified atrial fibrillation; I25.10 Atherosclerotic heart disease of native coronary artery without angina pectoris; E78.5 Hyperlipidemia, unspecified; Z85.038 Personal history of other malignant neoplasm of large intestine; E78.00 Pure hypercholesterolemia, unspecified; K59.01 Slow transit constipation; M19.90 Unspecified osteoarthritis, unspecified site; J43.9 Emphysema, unspecified; N18.31 Chronic kidney disease, stage 3a; I12.9 Hypertensive chronic kidney disease with stage 1 through stage 4 chronic kidney disease, or unspecified chronic kidney disease; M81.0 Age-related osteoporosis without current pathological fracture; Z95.5 Presence of coronary angioplasty implant and graft; Z72.0 Tobacco use; Z79.01 Long term (current) use of anticoagulants; Z85.46 Personal history of malignant neoplasm of prostate; Z79.82 Long term (current) use of aspirin; Z79.899 Other long term (current) drug therapy; Z79.4 Long term (current) use of insulin
CPT/HCPCS: 36415; 74177; 80053; 81001; 83690; 85025; 86140; 87086; J0696; J1170; J2405; J3490; J7030; 74018; 74018-26; 74019; 74019-26; 76705; 76705-26; 76775; 76775-26; 82272; 94640; 94761; A9270-GY; J2765

== ENCOUNTER 2022-11-25 20:52 | Emergency (ER) | payer MEDICARE, OTHER | END 2022-11-25 22:55 | disposition home or self-care (01) | LOC: JD.ED 20:52 | DX: R42 Dizziness and giddiness (principal); R06.02 Shortness of breath; I48.91 Unspecified atrial fibrillation; I25.10 Atherosclerotic heart disease of native coronary artery without angina pectoris; E78.00 Pure hypercholesterolemia, unspecified; I10 Essential (primary) hypertension; J44.9 Chronic obstructive pulmonary disease, unspecified; M19.90 Unspecified osteoarthritis, unspecified site; Z72.0 Tobacco use; Z79.82 Long term (current) use of aspirin; Z79.899 Other long term (current) drug therapy; Z79.01 Long term (current) use of anticoagulants | CPT/HCPCS: 36415; 70450; 70450-26; 80053; 84484; 85025; 93005; 93010; 99284 ==